=== PATIENT | female | born 1955 | race Caucasian/White ===

== ENCOUNTER 2016-05-04 11:00 | Outpatient (CLI) | payer MEDICARE, OTHER ==
--- OUTSIDE RECORDS SUMMARY | 2016-04-28 05:37 | XMS REPORT | Continuity of Care Document ---
Author Author [facility] Organization [facility] Address Unknown Phone Unavailable Care Team Providers Care [employer] Marker Name Role Phone CadenAlbertina barrios PCP [phone] Source Comments Some departments are not documenting in the electronic medical record. If you do not see the information that you expected, contact Release of Information in the Health Information Management department at [phone] for further assistance in locating additional records.[facility] Active Allergies and Adverse Reactions Not on File Current Medications Not on file Active Problems Not on file Social History Tobacco Use Types Packs/Day Years Used Date Never Assessed Plan of Care Health Maintenance Due Date Last Done Comments Physical (Comprehensive) 09/13/1963 Exam Pertussis Vaccine 09/13/1967 Tetanus Vaccine 1973 Cervical Cancer Screening 1977 Breast Cancer Screening 1996 Colorectal Cancer 2006 Screening Influenza Vaccine 11/14/2015 Results from Last 3 Months Not on file
[~2016-05-04] VITALS: Ht 172.7 cm; Wt 86.2 kg
[~2016-05-04 11:00] MED LIST: ALBU8.5H4 IH; ALPR1T PO; ATOR20TA66 PO; CALCIUM; CEPH500T PO; CHOL2000 PO; CHOL500049 PO; CITA20TA7 PO; DCS100C PO; ESTR1TAB14 PO; FNT100TD TD; GABA400C PO; HYDR-2889 PO; HYDR-2890 PO; HYDR-3816 PO; HYDR-3820 PO; LEVO500T69 PO; MELO15TA39 PO; METF500T8; METH4TAB PO; METH4TAB10; METH500T7 PO; MORP30CA16 PO; NF-PREM2.5; OXYC-272 PO; OXYC10TA7; PRD20T PO; PRED20TA PO; SENN1TAB76 PO; TIZA4CAP8 PO; TRM50T PO; VENL150C PO; ZOLP10TA5 PO
--- OUTSIDE RECORDS SUMMARY | 2016-05-04 11:24 | XMS REPORT | Continuity of Care Document ---
Author Author [facility] Organization [facility] Address Unknown Phone Unavailable Care Team Providers Care Pilot Boat Deckhand Name Role Phone CadenAlbertina barrios PCP [phone] Source Comments Some departments are not documenting in the electronic medical record. If you do not see the information that you expected, contact Release of Information in the Health Information Management department at [phone] for further assistance in locating additional records.[facility] Active Allergies and Adverse Reactions Not on [...]
[2016-05-05] MEDS ORDERED: HYDR-756 PO (11:46)
== END 2016-05-04 11:42 ==
LOC: PREOP 11:00
PROVIDERS: ATTEND Orthopaedic Surgery
DX: Z01.818 Encounter for other preprocedural examination (principal); M65.312 Trigger thumb, left thumb; Z22.322 Carrier or suspected carrier of Methicillin resistant Staphylococcus aureus

== ENCOUNTER 2016-05-05 08:32 | Day surgery (SDC) | payer MEDICARE, OTHER ==
[~2016-05-05] VITALS: Ht 172.7 cm; Wt 86.2 kg
[2016-05-05] MEDS: LACTATED RINGERS 1,000 ML IV PRN ×2 (08:45→10:30)
[2016-05-05] MEDS ORDERED: fentaNYL INJECTION 100 MCG/2 ML AMP ONE (08:48)
[2016-05-05] MEDS ORDERED: proPOfol 200 MG/20 ML (DIPRIVAN) VIAL IV ONE (08:48)
[2016-05-05] MEDS ORDERED: ceFAZolin 2 GM/50 ML NS 50 ML IV ONE (08:52)
[2016-05-05 09:04] VITALS: BP 138/94
[2016-05-05] MEDS ORDERED: ceFAZolin 2 GM/NS 50 ML IV ONE (09:15)
[2016-05-05] MEDS ORDERED: MIDAZOLAM 2 MG/2 ML (VERSED) VIAL IV ONE (09:15)
[2016-05-05] MEDS ORDERED: CATHETER FLUSH 10 ML SYR IV PRN (09:15)
[2016-05-05] MEDS ORDERED: LIDOCAINE 1% INJ 20 ML (XYLOCAINE) VIAL ONE (10:10)
[2016-05-05] MEDS ORDERED: NEO/POLY/BAC (NEOSPORIN) OINT 15 GM TUBE ONE (10:10)
[2016-05-05] MEDS ORDERED: GENTAMICIN 40 MG/ML 2 ML INJ SDV ONE (10:11)
--- NOTE | 2016-05-05 10:11 | Discharge Inst-Surgical ---
Discharge Inst-Surgical Depart Medication/Instructions New, Converted or Re-Newed RX: RX on Chart Patient Instructions f/u 7-10 days may remove dressing tomorrow and cover with bandaid frequent ROM of thumb no lifting over 2 lbs. Consults/Follow Up Goal/Follow Up Appt.: 7-10 days Activity Activity as Tolerated: No Activity Instructions: Avoid Pulling & Pushing, Avoid Stress to Incision Diet Discharge Diet: No Restrictions Diet After 24 Hours: Clear Liquid if Nauseous, Resume Home Diet If Any Problems/Questions/Issu: Contact Your Physician Skin/Wound Care Bathing Instructions: Shower Operative Area Clean and Dry: You May Remove Bandage Stitches/[place]/Dermabond Dis: Care of Stitches AMY WOOD APRN May 05, 2016 10:11 am
[2016-05-05] MEDS ORDERED: ONDANSETRON 4 MG/2 ML (SDV) Z0FRAN ONE (10:26)
[2016-05-05] MEDS ORDERED: LACTATED RINGERS 2,000 ML IV ONE (10:26)
[2016-05-05] MEDS ORDERED: SEVOFLURANE (ULTANE) 15 ML INHAL SOLN ONE (10:26)
[2016-05-05] MEDS ORDERED: KETOROLAC 30 MG/ML VIAL ONE (10:26)
[2016-05-05 11:15] VITALS: BP 114/91
[2016-05-05 11:45] VITALS: BP 116/88
[2016-05-05] MEDS ORDERED: HYDR-756 PO (11:46)
[2016-05-05 12:05] VITALS: BP 116/88
--- OUTSIDE RECORDS SUMMARY | 2016-05-05 13:15 | XMS REPORT | Continuity of Care Document ---
Author Author [facility] Organization [facility] Address Unknown Phone Unavailable Care Team Providers Care Wood Grinder Name Role Phone CadenAlbertina barrios PCP [phone] Source Comments Some departments are not documenting in the electronic medical record. If you do not see the information that you expected, contact Release of Information in the Health Information Management department at [phone] for further assistance in locating additional records.[facility] Active Allergies and Adverse Reactions Not [...]
--- OUTSIDE RECORDS SUMMARY | 2016-05-05 13:15 | XMS REPORT | Continuity of Care Document ---
Author Author [facility] Organization [facility] Address Unknown Phone Unavailable Care Team Providers Care [employer] Principal Name Role Phone CadenAlbertina barrios PCP [phone] Source Comments Some departments are not documenting in the electronic medical record. If you do not see the information that you expected, contact Release of Information in the Health Information Management department at [phone] for further assistance in locating additional records.[facility] Active Allergies and Adverse Reactions [...]
--- NOTE | 2016-05-06 11:28 | OPERATIVE REPORT ---
PROCEDURE PHYSICIAN: DANIEL HERNANDEZ DATE OF PROCEDURE: 05/05/2016 PREOPERATIVE DIAGNOSIS: Stenosing tenosynovitis left thumb (trigger thumb left hand). POSTOPERATIVE DIAGNOSIS: Stenosing tenosynovitis left thumb (trigger thumb left hand). PROCEDURE: A1 Annamaria release left thumb. SURGEON: Krishan FRIASMANAGER ENT: ANTOINETTE Belle ANESTHESIA: General. INDICATIONS: The patient is a 60-year-old female seen with chief complaint of progressive pain, in a catching locking sensation at the base of the left thumb with an inability to fully flex the left thumb. The patient was taken to surgery where an A1 annamaria release was performed without complication. PROCEDURE IN DETAIL: The patient was taken the operating room, placed supine upon the operating table and general inhalation anesthetic was administered. A well-padded pneumatic tourniquet was placed about the upper aspect of the left arm. A ChloraPrep and sterile drape of the left upper extremity was performed. The left arm was elevated, exsanguinated, and the tourniquet was inflated to 250 mmHg pressure. A transverse incision was made over the volar aspect of the MP joint of left thumb. Under loop magnification visualization, the incision was deepened. The flexor tendon was identified. The A1 annamaria was identified. This was divided longitudinally under direct visualization. The thumb was flexed and extended with no further tethering of the flexor tendon noted. Wound was irrigated with normal saline solution. The tourniquet was released. The skin edges were infiltrated with 1% lidocaine without epinephrine. The skin edges were then reapproximated simply with 4-0 nylon suture. An Adaptic Neosporin bulky dressing was placed about the left hand, wrist and thumb. The patient was awakened and was transported postop recovery with anesthesia personnel present in satisfactory condition. Job ID: [id number] Dictated Date: 05/05/2016 23:42:03 Roping Tender Date: 05/06/2016 11:22:49 / dejan
== END 2016-05-05 12:05 | disposition home or self-care (01) ==
LOC: SDC 08:32
PROVIDERS: ATTEND Orthopaedic Surgery
DX: M65.312 Trigger thumb, left thumb (principal)
CPT/HCPCS: 87081

== ENCOUNTER → 2016-08-25 | Outpatient (CLI) | payer MEDICARE, OTHER ==
[~2016-08-25] MED LIST changes: +HYDR-756 PO
--- NOTE | 2016-08-27 17:38 | Diagnostic Imaging Report ---
Bilateral screening mammogram The current study was also evaluated with a Computer Aided Detection (CAD) system. Indication: Screening. No current complaints stated on the questionnaire. COMPARISON: 08/02/15 Findings: The breasts are composed of scattered fibroglandular densities. Occasional benign-appearing desiccation is are noted. Allowing for technique and positional differences, no suspicious change is seen. IMPRESSION: No significant change. ACR BI-RADS Category 2: Benign findings. Result letter will be mailed to the patient. Note: At least 10% of breast cancer is not imaged by mammography. Dictated by: Dictated on workstation # [id number]
== END ==
LOC: RAD 13:02
PROVIDERS: ATTEND Internal Medicine
DX: Z12.31 Encounter for screening mammogram for malignant neoplasm of breast (principal)
CPT/HCPCS: 77067

== ENCOUNTER 2016-08-29 18:29 | Emergency (ER) | payer MEDICARE, OTHER ==
[~2016-08-29] VITALS: Ht 172.7 cm; Wt 90.7 kg
--- NOTE | 2016-08-29 19:00 | ED General ---
General Chief Complaint: Lower Extremity Stated Complaint: POST OP R FOOT REDNESS/OPEN WOUND Nursing Triage Note: Pt. noticed increased redness and drainage from post op wound of right 2nd great toe. She had a fusion of the affected toe by . Nursing Sepsis Screen: No Definite Risk Source of Information: Patient Exam Limitations: No Limitations History of Present Illness Time Seen by Provider: 18:59 Allergies and Home Medications Allergies Coded Allergies: No Known Drug Allergies (Unverified , 05/04/16) Home Medications Alprazolam 1 Mg Tablet, 1 TAB PO PRN, (Reported) Atorvastatin 20 Mg Tablet, 10 MG PO DAILY, (Reported) Cholecalciferol (Vitamin D3) 50,000 Unit Capsule, 50,000 UNIT PO WEEKLY, ( Reported) Citalopram Hydrobromide 20 Mg Tablet, 20 MG PO DAILY, (Reported) Gabapentin 400 Mg Capsule, 800 MG PO TID for 30 Days, (Reported) Hydrocodone/Acetaminophen 1 Each Tablet, 1 EACH PO Q8H PRN for PAIN, (Reported) Hydrocodone/Acetaminophen 1 Each Tablet, 1 EACH PO EVERY 4-6HRS PRN for PAIN, # 40 Prescribed by: BROOKLYN BYRD on 05/05/16 1146 Meloxicam 15 Mg Tablet, 15 MG PO DAILY, (Reported) Tizanidine HCl 4 Mg Capsule, 4 MG PO TID PRN for MUSCLE CRAMPS, (Reported) Zolpidem Tartrate 10 Mg Tablet, 10 MG PO HS, (Reported) Past Fplzcow-Epiuwl-Ccryjd Hx Patient Social History Alcohol Use: Denies Use Recreational Drug Use: No Smoking Status: Current Everyday Smoker Type Used: Cigarettes Recent Foreign Travel: No Contact w/Someone Who Travel: No Recent Infectious Disease Expo: No Recent Hopitalizations: No Immunizations Up To Date Date of Pneumonia Vaccine: Dec 13, 2012 Date of Influenza Vaccine: Dec 13, 2013 Seasonal Allergies Seasonal Allergies: No Surgeries HX Surgeries: Yes (back, neck, lithotrypsy, KNEE SURGERY, R TKR, D&C) Surgeries: Appendectomy, Orthopedic, Tonsillectomy Respiratory Hx Respiratory Disorders: No Cardiovascular Hx Cardiac Disorders: Yes Cardiac Disorders: High Cholesterol Neurological Hx Neurological Disorders: No Reproductive System Hx Reproductive Disorders: No Sexually Transmitted Disease: No HIV/AIDS: No LABORER TIN CAN History: Menopausal Genitourinary Hx Genitourinary Disorders: Yes Genitourinary Disorders: Kidney Stones Gastrointestinal Hx Gastrointestinal Disorders: Yes Gastrointestinal Disorders: Gastroesophageal Reflux Musculoskeletal Hx Musculoskeletal Disorders: Yes (CHRONIC GENERALIZED PAIN, AND LEFT BACK SPASMS) Musculoskeletal Disorders: Degenerate Disk Disease, Arthritis, Chronic Back Pain Endocrine Hx Endocrine Disorders: No HEENT HX ENT Disorders: Yes (DENTURES, LASIK EYE SURGERY) Cancer Hx Cancer: Yes Cancer: Skin, Melanoma Psychosocial Hx Psychiatric Problems: Yes Behavioral Health Disorders: Sleep Difficulties, Anxiety, Depression Integumentary HX Skin/Integumentary Disorder: No Blood Transfusions Hx Blood Disorders: No Adverse Reaction to a Blood Tr: No (HAS HAD BLOOD WITH NO REACTION) Family Medical History Significant Family History: No Pertinent Family Hx Physical Exam Vital Signs Vital Sign - Last 12Hours 08/29/16 18:47 Temp 97.5 Pulse 70 B/P (MAP) 138/58 Pulse Ox 98 O2 Delivery Room Air Capillary Refill : Less Than 3 Seconds Progress/Results/Core Measures Results/Orders My Orders Orders - EMILIANA SYLVESTER Rx-Trimeth/Sulfameth Ds Tab (Rx-Bactrim/ (08/29/16 19:06) Vital Signs/I&O Vital Sign - Last 12Hours 08/29/16 18:47 Temp 97.5 Pulse 70 B/P (MAP) 138/58 Pulse Ox 98 O2 Delivery Room Air Blood Pressure Mean: 84 Departure Impression Impression: Primary Impression: Cellulitis of toe of right foot Disposition: 01 HOME, SELF-CARE Condition: Improved Departure-Patient Inst. Decision time for Depature: 19:07 Referrals: DENYS PANTOJA DPM, WILLIAM J DO (PCP/Family) Primary Care Physician Patient Instructions: Cellulitis (Skin Infection), Adult (DC) Add. Discharge Instructions: All discharge instructions reviewed with patient and/or family. Voiced understanding. Medications as directed. Continue usual home meds. Follow-up with Dr. Pantoja for recheck as an outpatient as previously scheduled. Return to the emergency department for worsened pain, redness, drainage, fever, or any other concerns. Scripts Sulfamethoxazole/Trimethoprim (Bactrim Ds Tablet) 1 Each Tablet 1 EACH PO BID, #14 TAB 0 Refills Prov: EMILIANA SYLVESTER 08/29/16 EMILIANA SYLVESTER Aug 29, 2016 19:00
[2016-08-29] MEDS ORDERED: RX-TRIMETH/SULFA. 160-800 MG (BACTRIM DS) TAB PPK#2 PO STA (19:06)
[2016-08-29] MEDS ORDERED: SULF1TAB35 PO (19:09)
[2016-08-29 19:17] VITALS: BP 138/58
== END 2016-08-29 19:17 | disposition home or self-care (01) ==
LOC: EDUNIT# 18:29 → ER 18:31
DX: T81.4XXA Infection following a procedure, initial encounter (principal)
CPT/HCPCS: 99283

== ENCOUNTER → 2017-04-23 | Outpatient (CLI) | payer MEDICARE, OTHER ==
[~2017-04-23] MED LIST changes: +HYDR-34 PO; -HYDR-3816 PO; +SULF1TAB35 PO
--- NOTE | 2017-04-23 14:34 | Diagnostic Imaging Report ---
PROCEDURE: MRI lumbar spine. TECHNIQUE: Multiplanar, multisequence MRI of the lumbar spine was performed without contrast. INDICATION: Low back pain radiating into right lower extremity with weakness. History of lumbar spine surgery. COMPARISON: MRI lumbar spine without contrast 08/02/2015. FINDINGS: There are 5 lumbar-type vertebral bodies presumed for the purposes of this report. Normal alignment. Vertebral body heights are preserved. Normal bone marrow signal. There are postoperative findings of bilateral cristi and pedicle screw fixation at L4-L5. No abnormal signal in the conus which terminates at L1. Normal morphology of the cauda equina. The visualized paravertebral soft tissues are unremarkable. L1-L2: Ligamentous hypertrophy results in no substantial spinal canal or lateral recess narrowing. No neuroforaminal narrowing. L2-L3: Annular disc bulge, ligamentous hypertrophy and facet arthropathy all result in moderate spinal canal and bilateral lateral recess narrowing. Disc space height loss also results in advanced bilateral neuroforaminal narrowing. This is similar to the prior exam. L3-L4: Annular disc bulge, ligamentous hypertrophy and facet arthropathy result in mild spinal canal narrowing and moderate left lateral recess narrowing. Disc space height loss also contributes to advanced left and moderate right neuroforaminal narrowing. L4-L5: Annular disc bulge and facet arthropathy result in mild spinal canal and bilateral lateral recess narrowing. There is advanced left and moderate right neuroforaminal narrowing. L5-S1: Advanced facet arthropathy. This contributes to advanced right and mild left neuroforaminal narrowing. No spinal canal or lateral recess narrowing. IMPRESSION: 1. Stable postoperative findings of bilateral cristi and pedicle screw fixation at L4-L5. 2. Multilevel spinal canal and lateral recess narrowing is greatest at L2-L3 where it is moderate to advanced, similar to the prior exam. 3. Diffuse moderate and advanced neuroforaminal narrowing detailed above. Dictated by: Dictated on workstation # [id number]
== END ==
LOC: RAD 13:01
PROVIDERS: ATTEND Internal Medicine
DX: M48.07 Spinal stenosis, lumbosacral region (principal); M51.26 Other intervertebral disc displacement, lumbar region; M46.06 Spinal enthesopathy, lumbar region; M46.87 Other specified inflammatory spondylopathies, lumbosacral region; Z98.1 Arthrodesis status
CPT/HCPCS: 72148

== ENCOUNTER → 2017-12-16 | Outpatient (CLI) | payer MEDICARE, OTHER ==
[~2017-12-16] MED LIST changes: -CITA20TA7 PO; +CITA20TA9 PO; +HYDR-4227 PO; -HYDR-756 PO
--- NOTE | 2017-12-16 12:11 | Diagnostic Imaging Report ---
PROCEDURE: MRI lumbar spine. TECHNIQUE: Multiplanar, multisequence MRI of the lumbar spine was performed without contrast. INDICATION: Back pain, previous surgeries. COMPARISON: Exam compared to 04/23/2017. FINDINGS: Posterior fusion with bi-pedicular screws at the L4-L5 level are redemonstrated finding. No paravertebral fluid collection. The lumbar statures are normal. The marrow signal intensity was normal. The conus is normal. No intrathecal abnormality. No paravertebral mass, hemorrhage, or fluid collection demonstrated. T12-L1: This level and disc is stable and normal. L1-L2: There is disc desiccation and mild anterior greater than posterior endplate osteophytes. Canal, neuroforamina, and recesses appeared patent. L2-L3: There is disc desiccation, loss of disc stature with circumferential annular bulge. There is thickening of the ligamenta flava and facet arthrosis. The constellation of findings result in a moderate degree of canal stenosis with bi-foraminal narrowing, greater left than right, of moderate severity. L3-L4: There is mild canal stenosis, stable. Disc bulge and endplate osteophytes, asymmetric to the left, result in [id number] left foraminal narrowing. L4-L5: Canal is patent. Disc material, asymmetric to the left, results in [id number] degree of left foraminal narrowing. The right neuroforamen is mildly narrowed. Findings are unchanged. L5-S1: No substantial canal stenosis. Disc material does appear to result in an at least moderate stenosis of the right neuroforamen, partially obscured by artifact from pedicular screw. IMPRESSION: [id number]-[id number] multilevel stable canal stenoses. Multilevel foraminal narrowings, not substantially changed. No acute bony pathology, fluid collection, or malalignment. Dictated by: Dictated on workstation # [id number]
--- NOTE | 2017-12-16 12:22 | Diagnostic Imaging Report ---
Clinical indication: Patient with history of multiple back surgeries. Patient has chronic back pain. Exam: X-ray of the lumbar spine, multiple views including lateral flexion-extension views. Comparison: X-ray lumbar spine dated 08/23/2014. Findings: There is stable appearance of the L4-L5 posterior fusion hardware with bilateral spanning rods and pedicle screws. There are no hardware complications, such as osteolysis or hardware fracture. Lumbar spine has normal alignment with no acute fracture or dislocation. No significant motion on flexion-extension views. There is stable mild to moderate loss of intervertebral disc height at the L1-L2 and L2-L3 levels. There is slight progression of vertebral body spurs at the L3-L4. Sacroiliac joints show mild sclerosis. There is a 4 mm calcification overlying the inferior right renal shadow region which is not seen on the prior study. Renal stone may be considered. Impression: 1: Stable L4-L5 posterior fusion hardware with no interval hardware complications. 2: There is slight progression of lumbar spine degenerative spurs, but otherwise stable appearance of the lumbar spine. 3: There is interval development of a calcification overlying the right renal shadow and may represent renal stone. Dictated by: Dictated on workstation # [id number]
== END ==
LOC: RAD 10:10
DX: M48.061 Spinal stenosis, lumbar region without neurogenic claudication (principal); M99.73 Connective tissue and disc stenosis of intervertebral foramina of lumbar region; Z98.1 Arthrodesis status
CPT/HCPCS: 72114; 72148

== ENCOUNTER → 2017-12-27 | Outpatient (CLI) | payer MEDICARE, OTHER ==
--- NOTE | 2017-12-27 14:49 | Diagnostic Imaging Report ---
Indication: Routine screening. Comparison is made with prior mammograms from 08/25/2016 and 08/02/2015. 2-D and 3-D bilateral screening mammography was performed with CAD. Scattered fibroglandular densities are identified bilaterally. No mass or malignant- appearing microcalcifications are seen. Axillae are unremarkable. Impression: BI-RADS category 1 No mammographic features suspicious for malignancy are identified. ACR BI-RADS Category 1: Negative. Result letter will be mailed to the patient. Note: At least 10% of breast cancer is not imaged by mammography. Dictated by: Dictated on workstation # [id number]
== END ==
LOC: RAD 11:11
PROVIDERS: ATTEND Internal Medicine
DX: Z12.31 Encounter for screening mammogram for malignant neoplasm of breast (principal)
CPT/HCPCS: 77067

== ENCOUNTER 2018-02-01 14:16 | Outpatient (RCR) | payer MEDICARE, OTHER | END 2018-02-01 15:18 | disposition home or self-care (01) | PROVIDERS: ATTEND Internal Medicine | DX: S46.011A Strain of muscle(s) and tendon(s) of the rotator cuff of right shoulder, initial encounter (principal) ==

== ENCOUNTER → 2018-03-07 | Outpatient (CLI) | payer MEDICARE, OTHER ==
--- NOTE | 2018-03-07 10:46 | Diagnostic Imaging Report ---
PROCEDURE: CT sinuses without contrast TECHNIQUE: Multiple contiguous axial images were obtained through the sinuses without the use of intravenous contrast. Coronal and sagittal reformations were then performed. INDICATION: Headaches, nausea, congestion at night. CORRELATION STUDY: None. FINDINGS: There is a very mild mucosal thickening with a slightly frothy appearance about the sphenoid sinus. No significant air-fluid levels. Trace areas of mucosal thickening about the right and to a lesser degree left maxillary sinus. Probable small sessile cyst or polyp along the roof of the right maxillary sinus. No air-fluid levels. The frontal sinuses are fairly small and hypoplastic but otherwise clear. Ethmoid air cells with trace areas of mucosal thickening. The nasal septum without significant deviation. The ostiomeatal complexes demonstrate minimal mucosal thickening near their origins. The mastoid air cells, external auditory canals and middle ear cavities are clear. The patient is noted be edentulous. IMPRESSION: Very mild areas of mucosal thickening suggested most pronounced along the left sphenoid sinus. Dictated by: Dictated on workstation # [id number]
== END ==
LOC: RAD 09:42
PROVIDERS: ATTEND Otolaryngology Otolaryngology/Facial Plastic Surgery
DX: J32.9 Chronic sinusitis, unspecified (principal)
CPT/HCPCS: 70486

== ENCOUNTER 2018-11-25 13:45 | Outpatient (RCR) | payer MEDICARE, OTHER | END 2019-02-02 13:33 | disposition home or self-care (01) | PROVIDERS: ATTEND Neurological Surgery | DX: M50.022 Cervical disc disorder at C5-C6 level with myelopathy (principal) ==

== ENCOUNTER → 2019-04-14 | Outpatient (CLI) | payer MEDICARE, OTHER ==
[~2019-04-14] MED LIST changes: +METF500T19; -METF500T8
--- NOTE | 2019-04-14 14:48 | Diagnostic Imaging Report ---
PROCEDURE: CT abdomen and pelvis without contrast. TECHNIQUE: Multiple contiguous axial images were obtained through the abdomen and pelvis without the use of intravenous contrast. Auto Exposure Controls were utilized during the CT exam to meet ALARA standards for radiation dose reduction. All CT scans use one or more of the following dose optimizing techniques: automated exposure control, MA and/or KvP adjustment based on patient size and exam type or iterative reconstruction. INDICATION: Right lower quadrant abdominal pain. Diarrhea. COMPARISON: None. FINDINGS: Included portions of the lung bases are clear. CT abdomen: Normal appendix cannot be adequately identified, but there is no pericecal inflammation. Small bowel loops are nondistended. Multiple nonobstructive renal calculi are seen within the inferior pole of the right kidney. No renal calculi are seen on the left. No ureteral calculi identified on either side. Additionally, there is no hydronephrosis or other evidence of obstruction. No focal masses are identified on this noncontrast exam. There is probable hypodense cyst within the superior pole of the right kidney. Right adrenal nodule measures 1.6 x 1.4 cm. Hounsfield units of 6 are consistent with benign adenoma. The left adrenal gland, spleen, pancreas, and liver have an unremarkable noncontrast CT appearance. There is no loculated fluid collection, free fluid, nor free air within the abdomen. No abnormal mesenteric or retroperitoneal adenopathy is seen. Osseous structures show no acute abnormalities. There is mild scattered calcified aortic and arterial atherosclerosis. Osseous structures show no acute abnormalities. CT pelvis: Urinary bladder is unopacified. No calculi are seen within the urinary bladder. There is no loculated fluid collection, free fluid, nor free air within the pelvis. No abnormal lymph nodes are identified. Osseous structures show no acute abnormalities. Note is made of intramuscular lipoma of the left gluteus brittany muscle. IMPRESSION: 1. Nonobstructive right renal calculi. 2. No ureteral calculi, hydronephrosis, nor other evidence of obstruction. 3. Benign right adrenal adenoma. Dictated by: Dictated on workstation # [id number]
== END ==
LOC: RAD 13:49
PROVIDERS: ATTEND Internal Medicine
DX: N20.0 Calculus of kidney (principal); D35.01 Benign neoplasm of right adrenal gland; K50.90 Crohn's disease, unspecified, without complications
CPT/HCPCS: 74176

== ENCOUNTER → 2019-04-20 | Outpatient (CLI) | payer MEDICARE, OTHER ==
--- NOTE | 2019-04-21 09:06 | Diagnostic Imaging Report ---
INDICATION: Routine screening. COMPARISON: 12/27/2017 and 08/25/2016. TECHNIQUE: 2D and 3D bilateral screening mammography was performed with CAD. FINDINGS: Scattered fibroglandular densities are identified bilaterally. The parenchymal pattern is stable. No mass or malignant appearing microcalcifications are seen. The axillae are unremarkable. IMPRESSION: No mammographic features suspicious for malignancy are identified. ACR BI-RADS Category 1: Negative. Result letter will be mailed to the patient. Note: At least 10% of breast cancer is not imaged by mammography. Dictated by: Dictated on workstation # [id number]
== END ==
LOC: RAD 14:34
PROVIDERS: ATTEND Internal Medicine
DX: Z12.31 Encounter for screening mammogram for malignant neoplasm of breast (principal)
CPT/HCPCS: 77067

== ENCOUNTER 2019-12-26 10:25 | Emergency (ER) | payer MEDICARE, OTHER ==
[~2019-12-26] VITALS: Ht 170 cm; Wt 83.0 kg
[~2019-12-26 10:25] MED LIST changes: +ACHYD1T PO; -HYDR-3820 PO; +METF-865; -METF500T19
--- NOTE | 2019-12-26 10:44 | ED General ---
General Stated Complaint: SVT Source of Information: Patient, EMS Exam Limitations: No Limitations History of Present Illness Date Seen by Provider: Dec 26, 2019 Time Seen by Provider: 10:40 Initial Comments To ER by EMS from [facility] urgent care where she presented with cough and shortness of breath. She's been having this cough productive in nature and discomfort in the right upper chest for about 3 weeks. She believed she had pneumonia. She is a smoker. She had a COVID swab done which negative there. She felt very lightheaded and short of breath, was found to have a narrow complex heart rate of 170s. EMS was summoned and upon their arrival her heart rate was down to 80s. Patient states that over the years she's had a couple of these episodes of high heart rate, near syncope and shortness of breath but they terminate spontaneously and she has never sought care for them. She has had no fevers or chills at any point. Timing/Duration: Other (productive cough 3 weeks) Severity: Moderate Associated Systoms: Cough Allergies and Home Medications Allergies Coded Allergies: No Known Drug Allergies (Unverified , 05/04/16) Home Medications Alprazolam 1 Mg Tablet, 1 TAB PO PRN, (Reported) Atorvastatin 20 Mg Tablet, 10 MG PO DAILY, (Reported) Cefuroxime Axetil 500 Mg Tablet, 500 MG PO BID Prescribed by: HECTOR DARLING on 12/26/191127 Cholecalciferol (Vitamin D3) 50,000 Unit Capsule, 50,000 UNIT PO WEEKLY, (Reported) Citalopram Hydrobromide 20 Mg Tablet, 20 MG PO DAILY, (Reported) Fluconazole 150 Mg Tablet, 150 MG PO ONCE PRN for yeast infection Prescribed by: HECTOR DARLING on 12/26/19 1128 Gabapentin 400 Mg Capsule, 800 MG PO TID, (Reported) Hydrocodone Bit/Acetaminophen 1 Each Tablet, 1 EACH PO Q8H PRN for PAIN, (Reported) Hydrocodone/Acetaminophen 1 Each Tablet, 1 EACH PO EVERY 4-6HRS PRN for PAIN Prescribed by: BROOKLYN BYRD on 05/05/16 1146 Meloxicam 15 Mg Tablet, 15 MG PO DAILY, (Reported) Prednisone 20 Mg Tab, 40 MG PO DAILY Prescribed by: HECTOR DARLING on 12/26/19 1128 Sulfamethoxazole/Trimethoprim 1 Each Tablet, 1 EACH PO BID Prescribed by: EMILIANA SYLVESTER on 08/29/161908 Tizanidine HCl 4 Mg Capsule, 4 MG PO TID PRN for MUSCLE CRAMPS, (Reported) Zolpidem Tartrate 10 Mg Tablet, 10 MG PO HS, (Reported) Patient Home Medication List Home Medication List Reviewed: Yes Review of Systems Review of Systems Constitutional: see HPI; No chills, No fever EENTM: see HPI Respiratory: see HPI, cough Cardiovascular: no symptoms reported Genitourinary: no symptoms reported Musculoskeletal: no symptoms reported Skin: no symptoms reported Psychiatric/Neurological: No Symptoms Reported Hematologic/Lymphatic: No Symptoms Reported Past [id number] Hx Patient Social History Type Used: Cigarettes Recent Hopitalizations: No Immunizations Up To Date Date of Pneumonia Vaccine: Dec 13, 2012 Date of Influenza Vaccine: Dec 13, 2013 Seasonal Allergies Seasonal Allergies: No Past Medical History Surgeries: Yes (back, neck, lithotrypsy, KNEE SURGERY, R TKR, D&C) Appendectomy, Orthopedic, Tonsillectomy Respiratory: No Cardiac: Yes High Cholesterol Neurological: No Reproductive Disorders: No MEDICAL RECORD RETRIEVAL SPECIALIST History: Menopausal Sexually Transmitted Disease: No HIV/AIDS: No Kidney Stones Gastrointestinal: Yes Gastroesophageal Reflux Musculoskeletal: Yes (CHRONIC GENERALIZED PAIN, AND LEFT BACK SPASMS) Degenerate Disk Disease, Arthritis, Chronic Back Pain Endocrine: No Cancer: Yes Skin, Melanoma Psychosocial: Yes Sleep Difficulties, Anxiety, Depression Integumentary: No Blood Disorders: No Adverse Reaction/Blood Tranf: No (HAS HAD BLOOD WITH NO REACTION) Family Medical History No Pertinent Family Hx Physical Exam Vital Signs Capillary Refill : Height, Weight, BMI Height: 5'8.00" Weight: 200lbs. 0.0oz. [id number]; 28.9 BMI Method:Stated General Appearance: No Apparent Distress, WD/WN Eyes: Bilateral Eye Normal Inspection, Bilateral Eye PERRL, Bilateral Eye EOMI Neck: Full Range of Motion, Normal Inspection Respiratory: Lungs Clear, Normal Breath Sounds, No Accessory Muscle Use, No Respiratory Distress Cardiovascular: Regular Rate, Rhythm, Normal Peripheral Pulses, Other (normal sinus 85) Gastrointestinal: Normal Bowel Sounds, Non Tender, Soft Extremity: Normal Capillary Refill, Normal Inspection Neurologic/Psychiatric: Alert, Oriented x3 Skin: Normal Color, Warm/Dry Progress/Results/Core Measures Suspected Sepsis SIRS Temperature: Pulse: Respiratory Rate: Laboratory Tests 12/26/19 10:35: White Blood Count 6.9 Blood Pressure / Mean: Laboratory Tests 12/26/19 10:35: Creatinine 0.83, Platelet Count 253, Total Bilirubin 0.4 Results/Orders Lab Results Laboratory Tests Test 12/26/19 10:35 Range/Units White Blood Count 6.9 4.3-11.0 10^3/uL Red Blood Count 4.83 3.80-5.11 10^6/uL Hemoglobin 14.3 11.5-16.0 g/dL Hematocrit 44 35-52 % Mean Corpuscular Volume 91 80-99 fL Mean Corpuscular Hemoglobin 30 25-34 pg Mean Corpuscular Hemoglobin Concent 32 32-36 g/dL Red Cell Distribution Width 12.3 10.0-14.5 % Platelet Count 253 130-400 10^3/uL Mean Platelet Volume 9.4 9.0-12.2 fL Immature Granulocyte % (Auto) 0 % Neutrophils (%) (Auto) 64 42-75 % Lymphocytes (%) (Auto) 27 12-44 % Monocytes (%) (Auto) 6 0-12 % Eosinophils (%) (Auto) 2 0-10 % Basophils (%) (Auto) 0 0-10 % Neutrophils # (Auto) 4.4 1.8-7.8 10^3/uL Lymphocytes # (Auto) 1.9 1.0-4.0 10^3/uL Monocytes # (Auto) 0.4 0.0-1.0 10^3/uL Eosinophils # (Auto) 0.2 0.0-0.3 10^3/uL Basophils # (Auto) 0.0 0.0-0.1 10^3/uL Immature Granulocyte # (Auto) 0.0 0.0-0.1 10^3/uL D-Dimer 0.68 H 0.00-0.49 UG/ML Sodium Level 142 135-145 MMOL/L Potassium Level 4.6 3.6-5.0 MMOL/L Chloride Level 109 H 98-107 MMOL/L Carbon Dioxide Level 24 21-32 MMOL/L Anion Gap 9 5-14 MMOL/L Blood Urea Nitrogen 9 7-18 MG/DL Creatinine 0.83 0.60-1.30 MG/DL Estimat Glomerular Filtration Rate > 60 BUN/Creatinine Ratio 11 Glucose Level 108 H 70-105 MG/DL Calcium Level 9.0 8.5-10.1 MG/DL Corrected Calcium 8.8 8.5-10.1 MG/DL Total Bilirubin 0.4 0.1-1.0 MG/DL Aspartate Amino Transf (AST/SGOT) 16 5-34 U/L Alanine Aminotransferase (ALT/SGPT) 10 0-55 U/L Alkaline Phosphatase 67 40-136 U/L Troponin I < 0.028 <0.028 NG/ML C-Reactive Protein High Sensitivity 0.43 0.00-0.50 MG/DL Total Protein 7.2 6.4-8.2 GM/DL Albumin 4.3 3.2-4.5 GM/DL My Orders Orders - HECTOR DARLING APRN Cbc With Automated Diff (12/26/19 10:37) Troponin I (12/26/19 10:37) Ekg Tracing (12/26/19 10:37) Comprehensive Metabolic Panel (12/26/19 10:37) Hs C Reactive Protein (12/26/19 10:37) Fibrin Degradation Products (12/26/19 10:37) Chest 1 View, Ap/Pa Only (12/26/19 10:37) Ed Iv/Invasive Line Start (12/26/19 10:37) Ct Angio Chest W (12/26/19 11:21) Iohexol Injection (Omnipaque 350 Mg/Ml 1 (12/26/19 11:30) Received Contrast (Hold Metformin- Contr (12/26/19 11:30) Sodium Chloride Flush (Catheter Flush Sy (12/26/19 11:30) Ns (Ivpb) (Sodium Chloride 0.9% Ivpb Bag (12/26/19 11:30) Vital Signs/I&O Capillary Refill : Departure Communication (Admissions) [id number] is clear. Does not want a CT scan of the chest, would prefer to go on home and have this arranged outpatient by primary care. I discussed with her the need for cardiology follow-up. We'll treat her for bronchitis. She states she would like to follow up with [facility]. Impression Primary Impression: Acute bronchitis Additional Impression: Pleuritic chest pain Disposition: 01 HOME, SELF-CARE Condition: Stable Departure-Patient Inst. Decision time for Depature: 11:26 Referrals: MILE SOLARES DO (PCP) Primary Care Physician ALTA TONEY MD FACP [facility] Patient Instructions: Acute Bronchitis Add. Discharge Instructions: 1. Medication as directed 2. Follow-up Dr. Solares 3. Return to ER for any worsening. Call a industrial psychology professor of your choosing. Given these few episodes of high heart rate and shortness of breath that you have had over the few years, this could be an unusual but not life-threatening rhythm called supraventricular tachycardia. Alternatively this could be a brief episode of atrial fibrillation. It does warrant follow-up with a heart doctor Scripts Fluconazole (Diflucan) 150 Mg Tablet 150 MG PO ONCE PRN for yeast infection, #1 TAB Prov: HECTOR DARLING APRN 12/26/19 Cefuroxime Axetil (Cefuroxime) 500 Mg Tablet 500 MG PO BID, #14 TAB Prov: HECTOR DARLING APRN 12/26/19 Prednisone (Prednisone) 20 Mg Tab 40 MG PO DAILY, #8 TAB 0 Refills Prov: HECTOR DARLING APRN 12/26/19 Copy Copies To 1: MILE SOLARES PETER J APRN Dec 26, 2019 10:44
[2019-12-26 10:49] LABS: BASOPHILS % (AUTO) 0 % (0-10); EOSINOPHILS # (AUTO) 0.2 10^3/uL (0.0-0.3); EOSINOPHILS % (AUTO) 2 % (0-10); HEMATOCRIT 44 % (35-52); HEMOGLOBIN 14.3 g/dL (11.5-16.0); LYMPHOCYTES # (AUTO) 1.9 10^3/uL (1.0-4.0); LYMPHOCYTES % (AUTO) 27 % (12-44); MEAN CORPUSCULAR HEMOGLOBIN 30 pg (25-34); MEAN CORPUSCULAR HGB CONC 32 g/dL (32-36); MEAN CORPUSCULAR VOLUME 91 fL (80-99); MEAN PLATELET VOLUME 9.4 fL (9.0-12.2); MONOCYTES # (AUTO) 0.4 10^3/uL (0.0-1.0); MONOCYTES % (AUTO) 6 % (0-12); NEUTROPHILS # (AUTO) 4.4 10^3/uL (1.8-7.8); NEUTROPHILS % (AUTO) 64 % (42-75); PLATELET COUNT 253 10^3/uL (130-400); WHITE BLOOD COUNT 6.9 10^3/uL (4.3-11.0)
[2019-12-26 11:00] LABS: ALBUMIN 4.3 GM/DL (3.2-4.5); CHLORIDE 109 MMOL/L (98-107); POTASSIUM 4.6 MMOL/L (3.6-5.0); SODIUM 142 MMOL/L (135-145)
[2019-12-26 11:02] LABS: GLUCOSE 108 MG/DL (70-105); TOTAL PROTEIN 7.2 GM/DL (6.4-8.2)
[2019-12-26 11:03] LABS: CARBON DIOXIDE 24 MMOL/L (21-32)
[2019-12-26 11:04] LABS: BILIRUBIN,TOTAL 0.4 MG/DL (0.1-1.0)
[2019-12-26 11:06] LABS: ALKALINE PHOSPHATASE 67 U/L (40-136); CREATININE SERUM 0.83 MG/DL (0.60-1.30); GFR ESTIMATED > 60
[2019-12-26 11:07] LABS: BUN/CREATININE RATIO 11
[2019-12-26 11:09] LABS: ALANINE AMINOTRANSFERASE 10 U/L (0-55)
[2019-12-26] MEDS ORDERED: CEFU500T63 PO (11:28)
[2019-12-26] MEDS ORDERED: FLUC150T PO (11:28)
[2019-12-26] MEDS ORDERED: PRD20T PO (11:28)
[2019-12-26] MEDS ORDERED: HOLD METFORMIN - RECEIVED CONTRAST 20 ML VIAL IV SCH (11:30)
[2019-12-26] MEDS ORDERED: CATHETER FLUSH 10 ML SYR IV PRN (11:30)
[2019-12-26] MEDS ORDERED: NS 100 ML (IVPB) BAG IV ONE (11:30)
[2019-12-26] MEDS ORDERED: IOHEXOL 350 MG/ML 100 ML (OMNIPAQUE 350) VIAL IV ONE (11:30)
--- NOTE | 2019-12-26 11:33 | Diagnostic Imaging Report ---
INDICATION: Cough and chest pain Frontal chest obtained at 1118 a.m. and compared to 07/05/2013. Heart and mediastinal silhouette are normal in appearance. Lungs are clear. There is no pneumothorax or pleural fluid. IMPRESSION: No acute process in the chest. Dictated by: Dictated on workstation # [id number]
[2019-12-26 12:35] VITALS: BP 144/93
== END 2019-12-26 12:35 | disposition home or self-care (01) ==
LOC: ER 10:25 → EDUNIT# 10:25 → ER 12:35
DX: J40 Bronchitis, not specified as acute or chronic (principal); R07.89 Other chest pain; F41.9 Anxiety disorder, unspecified; F32.9 Major depressive disorder, single episode, unspecified; E78.00 Pure hypercholesterolemia, unspecified; G89.29 Other chronic pain; M54.9 Dorsalgia, unspecified; Z20.828 Contact with and (suspected) exposure to other viral communicable diseases; Z85.828 Personal history of other malignant neoplasm of skin; Z85.820 Personal history of malignant melanoma of skin; Z79.52 Long term (current) use of systemic steroids; Z79.891 Long term (current) use of opiate analgesic
CPT/HCPCS: 36415; 71045; 80053; 84484; 85025; 85379; 86141; 93005

== ENCOUNTER → 2019-12-29 | Outpatient (CLI) | payer MEDICARE, OTHER ==
[~2019-12-29] MED LIST changes: +CEFU500T63 PO; +FLUC150T PO
== END ==
LOC: CARD 13:30
PROVIDERS: ATTEND Internal Medicine
DX: I47.1 Supraventricular tachycardia (principal); J20.9 Acute bronchitis, unspecified; I34.0 Nonrheumatic mitral (valve) insufficiency
CPT/HCPCS: 93306

== ENCOUNTER → 2020-01-05 | Outpatient (CLI) | payer MEDICARE, OTHER ==
[~2020-01-05] VITALS: Ht 170 cm; Wt 82.0 kg
[~2020-01-05] MED LIST changes: +CATHETER FLUSH 10 ML SYR IV PRN; +REGADENOSON 0.4 MG/5 ML SYR (LEXISCAN) IV ONE
[2020-01-05 08:15] VITALS: BP 123/92
[2020-01-05 08:19] VITALS: BP 141/92
[2020-01-05 08:23] VITALS: BP 127/77
--- NOTE | 2020-01-05 14:00 | Cardiology Stress Test Report ---
Stress Test Report Date of Procedure/Referring: Date of Procedure: Jan 05, 2020 PCP Timmy Solares DO Admitting Physician Timmy Solares DO Indications: PSVT Baseline Vital Signs Vital Signs Date Time Temp Pulse Resp B/P (MAP) Pulse Ox O2 Delivery O2 Flow Rate FiO2 01/05/20 08:15 60 123/92 (102) 96 Room Air Summary: Patient receive a resting and stress dose of Myoview, images were acquired and reviewed in the short axis view, horizontal long axis view and vertical long axis view. TID: 1.1 SSS: 3 SDS: 3 EF: 69 1. Typical female pattern with breast attenuation, mild decreased uptake at the basal to mid anterior wall with subtle reversibility, no significant ischemia or infarction on SPECT images 2. Normal left ventricular size, EF 69 percent RICARDO MARADIAGA MD Jan 05, 2020 14:00
== END ==
LOC: CARD 07:15
PROVIDERS: ATTEND Internal Medicine
DX: I47.1 Supraventricular tachycardia (principal); J20.9 Acute bronchitis, unspecified
CPT/HCPCS: 78452; 93017; A9502

== ENCOUNTER 2020-08-21 14:39 | Emergency (ER) | payer MEDICARE, OTHER ==
[~2020-08-21] VITALS: Ht 170 cm; Wt 88.6 kg
[~2020-08-21 14:39] MED LIST changes: -CATHETER FLUSH 10 ML SYR IV PRN; -REGADENOSON 0.4 MG/5 ML SYR (LEXISCAN) IV ONE
[2020-08-21] MEDS ORDERED: KETOROLAC 30 MG/ML VIAL IVP ONE (15:00)
[2020-08-21] MEDS ORDERED: ONDANSETRON 4 MG/2 ML (SDV) Z0FRAN IVP ONE (15:00)
[2020-08-21] MEDS ORDERED: fentaNYL INJ 100 MCG/2 ML AMP IVP ONE (15:00)
--- NOTE | 2020-08-21 15:02 | ED Back Pain ---
General Stated Complaint: BACK PAIN Source of Information: Patient Exam Limitations: No Limitations History of Present Illness Date Seen by Provider: Aug 21, 2020 Time Seen by Provider: 14:50 Initial Comments Patient is a 64-year-old female who presents to the emergency department today with a chief complaint of left flank pain and left lower thoracic back pain. Patient states that she woke up this morning with the pain. She was able to function most of the morning but the pain has steadily increased. Patient cannot really sit still with the pain. She states throughout the afternoon the pain is wrapping around to the left upper quadrant. She denies any problems with urination, darker than normal urine or dysuria. She has had previous kidney stone in the past and she believes it was on the left. She had to be stented in the past. She has had lithotripsy. Patient denies any recent traumas or injuries to the left flank. She has not done anything to irritate her back as far she can recall. No recent fevers, chills. She has had some nausea and vomiting today secondary to the pain. She did take a hydrocodone tablet approximately 2 hours prior to arrival it has not really seemed to help the pain at all. Last normal bowel movement was this morning. She states no issues with that. All other review of systems reviewed and negative except as stated above. Timing/Duration: 4-6 Hours Severity: Severe Pain/Injury Location: Abdomen, Back Allergies and Home Medications Allergies Coded Allergies: No Known Drug Allergies (Unverified , 05/04/16) Home Medications Alprazolam 1 Mg Tablet, 1 TAB PO PRN, (Reported) Atorvastatin 20 Mg Tablet, 10 MG PO DAILY, (Reported) Cefuroxime Axetil 500 Mg Tablet, 500 MG PO BID Prescribed by: HECTOR DARLING on 12/26/19 1128 Cholecalciferol (Vitamin D3) 50,000 Unit Capsule, 50,000 UNIT PO WEEKLY, (Reported) Citalopram Hydrobromide 20 Mg Tablet, 20 MG PO DAILY, (Reported) Fluconazole 150 Mg Tablet, 150 MG PO ONCE PRN for yeast infection Prescribed by: HECTOR DARLING on 12/26/19 1128 Gabapentin 400 Mg Capsule, 800 MG PO TID, (Reported) Hydrocodone Bit/Acetaminophen 1 Each Tablet, 1 EACH PO Q8H PRN for PAIN, (Reported) Hydrocodone/Acetaminophen 1 Each Tablet, 1 EACH PO EVERY 4-6HRS PRN for PAIN Prescribed by: BROOKLYN BYRD on 05/05/16 1146 Meloxicam 15 Mg Tablet, 15 MG PO DAILY, (Reported) Prednisone 20 Mg Tab, 40 MG PO DAILY Prescribed by: HECTOR DARLING on 12/26/19 1128 Sulfamethoxazole/Trimethoprim 1 Each Tablet, 1 EACH PO BID Prescribed by: EMILIANA SYLVESTER on 08/29/16 1909 Tizanidine HCl 4 Mg Capsule, 4 MG PO TID PRN for MUSCLE CRAMPS, (Reported) Zolpidem Tartrate 10 Mg Tablet, 10 MG PO HS, (Reported) Patient Home Medication List Home Medication List Reviewed: Yes Review of Systems Constitutional: see HPI EENTM: no symptoms reported Respiratory: no symptoms reported Cardiovascular: no symptoms reported Gastrointestinal: abdominal pain (LUQ), nausea, vomiting Genitourinary: no symptoms reported Musculoskeletal: back pain (Left flank) Skin: no symptoms reported All Other Systems Reviewed Negative Unless Noted: Yes Past Nrgdnxg-Fwzkko-Dkrnxm Hx Patient Social History Type Used: Cigarettes Recent Hopitalizations: No Immunizations Up To Date Date of Pneumonia Vaccine: Dec 13, 2012 Date of Influenza Vaccine: Dec 13, 2013 Seasonal Allergies Seasonal Allergies: No Past Medical History Surgeries: Yes (back, neck, lithotrypsy, KNEE SURGERY, R TKR, D&C) Appendectomy, Orthopedic, Tonsillectomy Respiratory: No Cardiac: Yes High Cholesterol Neurological: No Reproductive Disorders: No [employer] History: Menopausal Sexually Transmitted Disease: No HIV/AIDS: No Kidney Stones Gastrointestinal: Yes Gastroesophageal Reflux Musculoskeletal: Yes (CHRONIC GENERALIZED PAIN, AND LEFT BACK SPASMS) Degenerate Disk Disease, Arthritis, Chronic Back Pain Endocrine: No Cancer: Yes Skin, Melanoma Psychosocial: Yes Sleep Difficulties, Anxiety, Depression Integumentary: No Blood Disorders: No Adverse Reaction/Blood Tranf: No (HAS HAD BLOOD WITH NO REACTION) Family Medical History No Pertinent Family Hx Physical Exam Vital Signs Vital Signs - First Documented 08/21/20 14:44 Temp 35.7 Pulse 75 Resp 18 B/P (MAP) 155/99 (117) Pulse Ox 97 O2 Delivery Room Air Capillary Refill : Height, Weight, BMI Height: 5'8.00" Weight: 200lbs. 0.0oz. 90.793677hd; 28.37 BMI Method:Stated General Appearance: WD/WN, Moderate Distress HEENT: PERRL/EOMI Neck: Normal Inspection Cardiovascular: Regular Rate, Rhythm, Tachycardia Respiratory: Lungs Clear, Normal Breath Sounds, No Accessory Muscle Use, No Respiratory Distress Gastrointestinal: Normal Bowel Sounds, Non Tender, Soft Back: CVA Tenderness (L) Extremity: Normal Capillary Refill, Normal Inspection, Normal Range of Motion, Non Tender, No Calf Tenderness Neurologic/Psychiatric: Alert, Oriented x3, No Motor/Sensory Deficits, Normal Mood/Affect, Other (Anxious and tearful secondary to pain) Skin: Normal Color, Warm/Dry Progress/Results/Core Measures Results/Orders Lab Results Laboratory Tests Test 08/21/20 15:15 08/21/20 16:05 Range/Units White Blood Count 8.6 4.3-11.0 10^3/uL Red Blood Count 4.57 3.80-5.11 10^6/uL Hemoglobin 13.8 11.5-16.0 g/dL Hematocrit 42 35-52 % Mean Corpuscular Volume 91 80-99 fL Mean Corpuscular Hemoglobin 30 25-34 pg Mean Corpuscular Hemoglobin Concent 33 32-36 g/dL Red Cell Distribution Width 12.7 10.0-14.5 % Platelet Count 220 130-400 10^3/uL Mean Platelet Volume 9.8 9.0-12.2 fL Immature Granulocyte % (Auto) 0 % Neutrophils (%) (Auto) 59 42-75 % Lymphocytes (%) (Auto) 32 12-44 % Monocytes (%) (Auto) 7 0-12 % Eosinophils (%) (Auto) 3 0-10 % Basophils (%) (Auto) 0 0-10 % Neutrophils # (Auto) 5.0 1.8-7.8 X 10^3 Lymphocytes # (Auto) 2.7 1.0-4.0 X 10^3 Monocytes # (Auto) 0.6 0.0-1.0 X 10^3 Eosinophils # (Auto) 0.2 0.0-0.3 10^3/uL Basophils # (Auto) 0.0 0.0-0.1 10^3/uL Immature Granulocyte # (Auto) 0.0 0.0-0.1 10^3/uL Sodium Level 139 135-145 MMOL/L Potassium Level 4.4 3.6-5.0 MMOL/L Chloride Level 105 98-107 MMOL/L Carbon Dioxide Level 20 L 21-32 MMOL/L Anion Gap 14 5-14 MMOL/L Blood Urea Nitrogen 12 7-18 MG/DL Creatinine 1.07 0.60-1.30 MG/DL Estimat Glomerular Filtration Rate 52 BUN/Creatinine Ratio 11 Glucose Level 125 H 70-105 MG/DL Calcium Level 9.6 8.5-10.1 MG/DL Urine Color YELLOW Urine Clarity CLEAR Urine pH 6.0 5-9 Urine Specific Lawrence >=1.030 1.016-1.022 Urine Protein NEGATIVE NEGATIVE Urine Glucose (UA) NEGATIVE NEGATIVE Urine Ketones NEGATIVE NEGATIVE Urine Nitrite NEGATIVE NEGATIVE Urine Bilirubin NEGATIVE NEGATIVE Urine Urobilinogen 0.2 < = 1.0 MG/DL Urine Leukocyte Esterase TRACE H NEGATIVE Urine RBC (Auto) NEGATIVE NEGATIVE Urine RBC NONE /HPF Urine WBC 25-50 H /HPF Urine Squamous Epithelial Cells 5-10 /HPF Urine Crystals NONE /LPF Urine Bacteria TRACE /HPF Urine Casts NONE /LPF Urine Mucus NEGATIVE /LPF Urine Culture Indicated YES My Orders Orders - EMMY COX MD Ed Iv/Invasive Line Start (08/21/20 14:58) Basic Metabolic Panel (08/21/20 14:58) Cbc With Automated Diff (08/21/20 14:58) Abdomen/Kub 1view (08/21/20 14:58) Ua Culture If Indicated (08/21/20 14:58) Ketorolac Injection (Toradol Injection) (08/21/20 15:00) Fentanyl Inj (Sublimaze Injection) (08/21/20 15:00) Ondansetron Injection (Zofran Injectio (08/21/20 15:00) Ns Iv 1000 Ml (Sodium Chloride 0.9%) (08/21/20 16:00) Morphine Injection (Morphine Injection (08/21/20 16:03) Ct Abdomen/Pelvis Wo (08/21/20 16:03) Urine Culture (08/21/20 16:05) Morphine Injection (Morphine Injection (08/21/20 16:35) Orphenadrine Inj (Ed Only) (Norflex Inje (08/21/20 17:00) Medications Given in ED Current Medications Medications Dose Ordered Sig/Ksenia Route Start Time Stop Time Status Last Admin Dose Admin Fentanyl Citrate 50 mcg ONCE ONCE IVP 08/21/20 15:00 08/21/20 15:01 DC 08/21/20 15:19 50 MCG Ketorolac Tromethamine 15 mg ONCE ONCE IVP 08/21/20 15:00 08/21/20 15:01 DC 08/21/20 15:21 15 MG Ondansetron HCl 4 mg ONCE ONCE IVP 08/21/20 15:00 08/21/20 15:01 DC 08/21/20 15:21 4 MG Orphenadrine Citrate 60 mg ONCE ONCE IV 08/21/20 17:00 08/21/20 17:01 DC 08/21/20 17:05 60 MG Vital Signs/I&O 08/21/20 14:44 Temp 35.7 Pulse 75 Resp 18 B/P (MAP) 155/99 (117) Pulse Ox 97 O2 Delivery Room Air Progress Progress Note : Time: 16:03 Progress Note Patient is only mildly improved. Obtain a urine specimen now. Will order some morphine and a CAT scan to further evaluate for stone I did not see anything on the KUB. 1722 Patient still with a significant amount of pain despite a total of 10 mg of morphine and 60 mg of Norflex IV. We will place a lidocaine patch over her left flank where she is having the most pain and give her a milligram of Dilaudid before discharge. Patient has no intra-abdominal pathology on CT.. She has no obvious significant skeletal abnormalities. No signs of sepsis. No signs of urinary tract infection no kidney stone on the left. Nothing in the lung bases. I have ruled out at this point all emergent pathology. She has no overlying rashes to the skin on that side. No crepitance in the skin. Patient will be treated with a lidocaine patches and some Dilaudid. She will continue to take her hydrocodone at home. I am going to give her some muscle relaxers for home, Valium 2 mg to take every 6 hours as needed. I have cautioned her on the use of Valium and hydrocodone. She verbalized understanding. All questions are sought and answered. Patient is stable for discharge. Diagnostic Imaging Diagonstic Imaging: Xray Plain Films/CT/US/NM/MRI: abdomen Comments [facility]. [place], [place] NAME: VEREAN KAPADIA [facility] REC#: [id number] PT STATUS: REG ER : 1955 PHYSICIAN: EMMY COX MD ADMIT DATE: 08/21/20/ER Draft Date of Exam:08/21/20 ABDOMEN/KUB 1VIEW EXAMINATION: Supine abdomen at 3:44 PM. INDICATION: Left flank pain. FINDINGS: The prior CT abdomen/pelvis exam of 04/14/2019 noted a nonobstructive calculus within the inferior pole of the right kidney. That calculus is again identified on this study. The calculus measures approximately 5.8 mm on this exam although, on the CT exam, it measured approximately 17.5 mm in length. The phlebolith low in the pelvis on the left seen previously is also again evident and no different. There are no other pathological calcifications evident. There is gas in both large and small bowel in a nonspecific fashion. There is no sign of a bowel obstruction. There is no mass or organomegaly identified. The osseous structures are unremarkable for an acute abnormality. As noted on the prior exam, there has been a prior posterior fusion of L4 and L5. Also, there is now a 10 x 15 mm metallic density overlying the mid body of T11. This finding was not present on the prior exam. This could be extraneous to the patient. If further evaluation is desired, then a lateral view of the abdomen would be recommended. IMPRESSION: 1. There is a nonobstructive calculus overlying the inferior pole of the right kidney. There is no sign of a calculus along the expected paths of the ureters; however, if there is clinical concern regarding obstruction of either collecting system by a calculus, then CT would be recommended. 2. There is no acute abnormality of the abdomen or pelvis noted. 3. The metallic density overlying T11 is of uncertain etiology. Considerations and recommendations as above. Dictated on workstation # [id number] Dict: 08/21/20 1544 Trans: 08/21/20 1602 [id number] Interpreted by: ENMANUEL MTZ MD Electronically signed by: [facility]. [place], [place] NAME: VERENA KAPADIA [facility] REC#: [id number] PT STATUS: REG ER : 1955 PHYSICIAN: EMMY COX MD ADMIT DATE: 08/21/20/ER Draft Date of Exam:08/21/20 CT ABDOMEN/PELVIS WO EXAMINATION: CT abdomen and pelvis without contrast. TECHNIQUE: Multiple contiguous axial images were obtained through the abdomen and pelvis without the use of intravenous contrast. All CT scans use one or more of the following dose optimizing techniques: automated exposure control, MA and/or KvP adjustment based on patient size and exam type or iterative reconstruction. HISTORY: Left flank pain. COMPARISON: CT abdomen and pelvis 04/14/2019. FINDINGS: Lung bases: Bibasilar dependent atelectasis. Solid organs: The liver is normal. The gallbladder is normal. There is no biliary ductal dilation. Pancreas is normal. Spleen is normal. There is a 1.5 cm right adrenal nodule with Hounsfield units of 0 compatible with an adrenal adenoma. Left adrenal gland is unremarkable. There is a 0.6 cm nonobstructing right renal calculus. There is no hydronephrosis. Bowel: The stomach and small bowel are normal without obstruction. There is scattered colonic diverticulosis. There is mild wall thickening within the sigmoid colon in an area of multiple diverticuli and mild inflammatory stranding. There are no findings of acute appendicitis. Peritoneum: There is no intraperitoneal free fluid or free air. No suspicious lymphadenopathy. Vasculature: Calcification of the aorta without aneurysm. Musculoskeletal: Multilevel surgical degenerative changes of the spine without suspicious osseous lesion or compression fracture. Pelvis: The uterus and adnexa are normal. The urinary bladder is normal. IMPRESSION: 1. Diverticulosis with wall thickening and mild inflammatory stranding of the sigmoid colon which could be seen with sigmoid diverticulitis or infectious inflammatory colitis in the appropriate clinical setting. No abscess or free air. 2. Nonobstructing 0.6 cm right renal calculus. No hydronephrosis. Dictated on workstation # [id number] Dict: 08/21/20 1658 Trans: 08/21/20 1704 [facility] [id number] Interpreted by: KATJA RAMIREZ DO Electronically signed by: Departure Impression Primary Impression: Left flank pain Disposition: HOME, SELF-CARE Condition: Stable Departure-Patient Inst. Decision time for Depature: 17:25 Referrals: MILE ARIAS DO (PCP/Family) Primary Care Physician Patient Instructions: Upper Back Pain Add. Discharge Instructions: Continue to take your hydrocodone at home as needed for pain. Given you a prescription for Valium to take for muscle relaxation. Take this every 6 hours as needed. Use [id number] lidocaine patches to the area over the next 2 to 3 days. You can also alternate heat and ice. Return to the emergency room for reevaluation if you have fever, vomiting, worsening pain or any other emergent concerning symptoms develop. Please follow-up with your primary care physician. Scripts Diazepam (Diazepam) 5 Mg Tablet 5 MG PO Q8H PRN for muscle spasm and pain, #15 TAB Prov: EMMY COX MD 08/21/20 EMMY COX MD Aug 21, 2020 15:02
[2020-08-21 15:31] LABS: BASOPHILS % (AUTO) 0 % (0-10); EOSINOPHILS # (AUTO) 0.2 10^3/uL (0.0-0.3); EOSINOPHILS % (AUTO) 3 % (0-10); HEMATOCRIT 42 % (35-52); HEMOGLOBIN 13.8 g/dL (11.5-16.0); LYMPHOCYTES # (AUTO) 2.7 X 10^3 (1.0-4.0); LYMPHOCYTES % (AUTO) 32 % (12-44); MEAN CORPUSCULAR HEMOGLOBIN 30 pg (25-34); MEAN CORPUSCULAR HGB CONC 33 g/dL (32-36); MEAN CORPUSCULAR VOLUME 91 fL (80-99); MEAN PLATELET VOLUME 9.8 fL (9.0-12.2); MONOCYTES # (AUTO) 0.6 X 10^3 (0.0-1.0); MONOCYTES % (AUTO) 7 % (0-12); NEUTROPHILS % (AUTO) 59 % (42-75); PLATELET COUNT 220 10^3/uL (130-400); WHITE BLOOD COUNT 8.6 10^3/uL (4.3-11.0)
[2020-08-21 15:45] LABS: POTASSIUM 4.4 MMOL/L (3.6-5.0)
[2020-08-21 15:46] LABS: CALCIUM 9.6 MG/DL (8.5-10.1)
[2020-08-21 15:50] LABS: CREATININE SERUM 1.07 MG/DL (0.60-1.30)
[2020-08-21] MEDS ORDERED: NS IV 1000 ML 1,000 ML IV SCH (16:00)
--- NOTE | 2020-08-21 16:02 | Diagnostic Imaging Report ---
EXAMINATION: Supine abdomen at 3:44 PM. INDICATION: Left flank pain. FINDINGS: The prior CT abdomen/pelvis exam of 04/14/2019 noted a nonobstructive calculus within the inferior pole of the right kidney. That calculus is again identified on this study. The calculus measures approximately 5.8 mm on this exam although, on the CT exam, it measured approximately 17.5 mm in length. The phlebolith low in the pelvis on the left seen previously is also again evident and no different. There are no other pathological calcifications evident. There is gas in both large and small bowel in a nonspecific fashion. There is no sign of a bowel obstruction. There is no mass or organomegaly identified. The osseous structures are unremarkable for an acute abnormality. As noted on the prior exam, there has been a prior posterior fusion of L4 and L5. Also, there is now a 10 x 15 mm metallic density overlying the mid body of T11. This finding was not present on the prior exam. This could be extraneous to the patient. If further evaluation is desired, then a lateral view of the abdomen would be recommended. IMPRESSION: 1. There is a nonobstructive calculus overlying the inferior pole of the right kidney. There is no sign of a calculus along the expected paths of the ureters; however, if there is clinical concern regarding obstruction of either collecting system by a calculus, then CT would be recommended. 2. There is no acute abnormality of the abdomen or pelvis noted. 3. The metallic density overlying T11 is of uncertain etiology. Considerations and recommendations as above. Dictated by: Dictated on workstation # [id number]
[2020-08-21] MEDS ORDERED: morphine INJ 10 MG/ML 1ML (SYR OR VIAL) IVP STA ×2 (16:03→16:35)
[2020-08-21 16:13] LABS: BILIRUBIN,URINE NEGATIVE (NEGATIVE); CLARITY,URINE CLEAR; COLOR,URINE YELLOW; GLUCOSE, URINE (UA) NEGATIVE (NEGATIVE); KETONES,URINE NEGATIVE (NEGATIVE); LEUKOCYTE ESTERASE ,URINE TRACE (NEGATIVE); NITRITE,URINE NEGATIVE (NEGATIVE); PROTEIN,URINE NEGATIVE (NEGATIVE)
[2020-08-21 16:19] LABS: BACTERIA,URINE TRACE /HPF; WBC,URINE 25-50 /HPF
[2020-08-21] MEDS ORDERED: ORPHENADRINE 60 MG/2 ML (NORFLEX) AMP (ED ONLY) IV ONE (17:00)
--- NOTE | 2020-08-21 17:04 | Diagnostic Imaging Report ---
EXAMINATION: CT abdomen and pelvis without contrast. TECHNIQUE: Multiple contiguous axial images were obtained through the abdomen and pelvis without the use of intravenous contrast. All CT scans use one or more of the following dose optimizing techniques: automated exposure control, MA and/or KvP adjustment based on patient size and exam type or iterative reconstruction. HISTORY: Left flank pain. COMPARISON: CT abdomen and pelvis 04/14/2019. FINDINGS: Lung bases: Bibasilar dependent atelectasis. Solid organs: The liver is normal. The gallbladder is normal. There is no biliary ductal dilation. Pancreas is normal. Spleen is normal. There is a 1.5 cm right adrenal nodule with Hounsfield units of 0 compatible with an adrenal adenoma. Left adrenal gland is unremarkable. There is a 0.6 cm nonobstructing right renal calculus. There is no hydronephrosis. Bowel: The stomach and small bowel are normal without obstruction. There is scattered colonic diverticulosis. There is mild wall thickening within the sigmoid colon in an area of multiple diverticuli and mild inflammatory stranding. There are no findings of acute appendicitis. Peritoneum: There is no intraperitoneal free fluid or free air. No suspicious lymphadenopathy. Vasculature: Calcification of the aorta without aneurysm. Musculoskeletal: Multilevel surgical degenerative changes of the spine without suspicious osseous lesion or compression fracture. Pelvis: The uterus and adnexa are normal. The urinary bladder is normal. IMPRESSION: 1. Diverticulosis with wall thickening and mild inflammatory stranding of the sigmoid colon which could be seen with sigmoid diverticulitis or infectious inflammatory colitis in the appropriate clinical setting. No abscess or free air. 2. Nonobstructing 0.6 cm right renal calculus. No hydronephrosis. Dictated by: Dictated on workstation # [id number]
[2020-08-21] MEDS ORDERED: DIAZ5TAB49 PO (17:28)
[2020-08-21] MEDS ORDERED: HYDROmorphone 2 MG/ML VIAL (DILAUDID) IV ONE (17:30)
[2020-08-21 17:51] VITALS: BP 120/85
[2020-08-22] MEDS ORDERED: LIDOCAINE 4% (SALONPAS) PATCH TOP SCH (09:00)
== END 2020-08-21 17:52 | disposition home or self-care (01) ==
LOC: EDUNIT# 14:39 → ER 14:42
DX: R10.9 Unspecified abdominal pain (principal); E78.00 Pure hypercholesterolemia, unspecified; F41.9 Anxiety disorder, unspecified; F32.9 Major depressive disorder, single episode, unspecified; G89.29 Other chronic pain; M54.9 Dorsalgia, unspecified; Z79.52 Long term (current) use of systemic steroids; Z79.899 Other long term (current) drug therapy; Z79.891 Long term (current) use of opiate analgesic
CPT/HCPCS: 36415; 74018; 74176; 80048; 81000; 85025; 87088

== ENCOUNTER → 2020-08-23 | Outpatient (CLI) | payer MEDICARE, OTHER ==
[~2020-08-23] MED LIST changes: +DIAZ5TAB49 PO
--- NOTE | 2020-08-23 15:36 | Diagnostic Imaging Report ---
INDICATION: Intercostal neuralgia. TECHNIQUE: Thee views of left ribs, 2:36 PM. CORRELATION STUDY: None. FINDINGS: The visualized left ribs are unremarkable. There is no acute bony abnormality. No bony destructive change. Underlying left lung parenchyma is unremarkable without evidence for infiltrate, effusion or pneumothorax. Visualized portion of the left humerus appearing unremarkable. Probable small sclerotic foci of the humeral head. C6-T1 spinal fusion plate present. There does appear to be mild degenerative changes of the thoracic spine. There is either mild rotation or perhaps minimal leftward curvature at the thoracolumbar junction. Partial visualization of the lumbar spinal fixation hardware. IMPRESSION: Unremarkable examination of the left ribs. Dictated by: Dictated on workstation # [id number]
== END ==
LOC: RAD 14:05
PROVIDERS: ATTEND Internal Medicine
DX: G58.8 Other specified mononeuropathies (principal)
CPT/HCPCS: 71100

== ENCOUNTER → 2020-11-27 | Outpatient (CLI) | payer MEDICARE, OTHER ==
[~2020-11-27] MED LIST changes: +GADOBUTROL 10 MMOL/10 ML (GADAVIST) VIAL IV ONE; -SULF1TAB35 PO; +SULF1TAB38 PO
--- NOTE | 2020-11-27 13:08 | Diagnostic Imaging Report ---
Exam: MRI left foot without and with intravenous contrast. Date: November 27, 2020. Indication: 65-year-old female, left foot pain. No known injury. Comparison: None. Technique: Multiple pre and postcontrast MRI sequences of the foot were obtained. Findings: The visualized portions of the posterior flexor tendons are intact. The visualized portions of the peroneal tendons are intact. The visualized portions of the anterior extensor tendons are intact. The visualized portions of the plantar fascia are intact. The Lisfranc ligament proper is intact. There is advanced arthritis at the articulation of the middle cuneiform at the second metatarsal base. There are degenerative related subchondral cystic changes and associated marrow edema. There is also mild to moderate arthritis at the articulation of the lateral cuneiform with the third metatarsal base. There is no identified joint effusion. There is no identified bone fragmentation or bone erosion. There is mild osteoarthritis at the first metatarsophalangeal joint. There is fairly prominent edema-like signal in the proximal half of the second metatarsal and adjacent medial cuneiform. There is also edema-like signal in the navicular and proximal aspect of the third metatarsal base. There is no identified fracture line. There is arthritis at the articulation of the navicular with the medial and middle cuneiforms. There is no identified focal fluid collection. There is no identified enhancing soft tissue mass. There is preservation of normal fat signal in the imaged portions of the sinus tarsi. Impression: 1. 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 There is associated degenerative related signal change. Although these articulations can be involved with crystalline arthropathies or Charcot arthropathy, there is no joint effusion, bone fragmentation, or bone erosion to additionally favor these considerations. 2. The extent of edema-like signal in the second metatarsal is prominent and does extend to the level of the mid diaphysis. This also could reflect stress reaction. There is no evidence of a fracture. 3. Intact imaged tendons and intact Lisfranc ligament proper. Dictated by: Dictated on workstation # [id number]
== END ==
LOC: RAD 10:37
PROVIDERS: ATTEND Podiatrist
DX: M19.072 Primary osteoarthritis, left ankle and foot (principal)
CPT/HCPCS: 73720

== ENCOUNTER → 2021-01-22 | Outpatient (CLI) | payer MEDICARE, OTHER ==
[~2021-01-22] MED LIST changes: -GADOBUTROL 10 MMOL/10 ML (GADAVIST) VIAL IV ONE
--- NOTE | 2021-01-23 09:51 | Diagnostic Imaging Report ---
INDICATION: Routine screening. COMPARISON is made with prior mammograms from 04/20/2019 and 12/27/2017. 2-D and 3-D bilateral screening mammography was performed with CAD. Scattered fibroglandular densities are identified bilaterally. The parenchymal pattern is stable. No mass or malignant-appearing microcalcifications are seen. Axillae are unremarkable. IMPRESSION: BI-RADS Category 1 No mammographic features suspicious for malignancy are identified. ACR BI-RADS Category 1: Negative. Result letter will be mailed to the patient. Note: At least 10% of breast cancer is not imaged by mammography. Dictated by: Dictated on workstation # [id number]
== END ==
LOC: RAD 14:45
PROVIDERS: ATTEND Internal Medicine
DX: Z12.31 Encounter for screening mammogram for malignant neoplasm of breast (principal)
CPT/HCPCS: 77063; 77067

== ENCOUNTER → 2022-05-26 | Outpatient (CLI) | payer MEDICARE, OTHER ==
--- NOTE | 2022-05-26 15:08 | Diagnostic Imaging Report ---
INDICATION: Routine screening. COMPARISON: 01/22/2021 and 04/20/2019. TECHNIQUE: 2D and 3D bilateral screening mammography was performed with CAD. FINDINGS: Scattered fibroglandular densities are identified bilaterally. No mass or malignant-appearing microcalcifications are identified. The axillae are unremarkable. IMPRESSION: No mammographic features suspicious for malignancy are identified. ACR BI-RADS Category 1: Negative. Result letter will be mailed to the patient. Note: At least 10% of breast cancer is not imaged by mammography. Dictated by: Dictated on workstation # [id number]
== END ==
LOC: RAD 12:32
PROVIDERS: ATTEND Internal Medicine
DX: Z12.31 Encounter for screening mammogram for malignant neoplasm of breast (principal)
CPT/HCPCS: 77063; 77067

== ENCOUNTER → 2022-07-28 | Outpatient (CLI) | payer MEDICARE, OTHER ==
--- NOTE | 2022-07-28 11:38 | Diagnostic Imaging Report ---
INDICATION: Postmenopausal state. COMPARISON: 11/11/2012. FINDINGS: AP Spine L1-L4: [BMD (g/cm2): na] [T-Score: na] [Z-Score: na] [BMD Previous: na] [BMD % Change: na] LT Hip Neck: [BMD (g/cm2): 1.129] [T-Score: 0.7] [Z-Score: 1.8] LT Hip Total: [BMD (g/cm2):1.167] [T-Score:1.3] [Z-Score: 2.1] [BMD Previous: 1.220] [BMD % Change: -4.3*] RT Hip Neck: [BMD (g/cm2):1.123] [T-Score:0.6] [Z-Score:1.7] RT Hip Total: [BMD (g/cm2):1.162] [T-score:1.2] [Z-Score:2.1] [BMD Previous:1.204] [BMD % Change:-3.5*] *Indicates significant change from prior examination based on 95% confidence level. World Health Organization criteria for BMD interpretation classify patients as Normal (T-score at or above -1.0), Osteopenic (T-score between -1.0 and -2.5) or Osteoporotic (T-score at or below -2.5). LIMITATIONS AND MODIFICATION: The lumbar spine was not evaluated secondary to postsurgical changes. IMPRESSION: 1. Normal bone mineral density. 2. Bone mineral density has decreased by a statistically significant amount, as detailed above. 3. See below National Osteoporosis Foundation guidelines on when to potentially initiate pharmacologic therapy. Based on the National Osteoporosis Foundation Guidelines, pharmacologic treatment should be initiated in any of the following, unless clinical conditions suggest otherwise: * Any patient with prior fragility fracture of the hip or vertebrae. A spine fracture indicates 5X risk for subsequent spine fracture and 2X risk for subsequent hip fracture. * Osteoporosis (T-score <-2.5). * Postmenopausal women and men age 50 and older with low bone mass/osteopenia (T-score between -1.0 and -2.5) by DXA and 10-year major osteoporotic fracture greater than 20% or a 10-year probability of hip fracture greater than 3%. These fracture risks are supplied above in the FRAX score, if applicable. * Clinician judgement and/or patient preferences may indicate treatment for people with 10-year fracture probabilities above or below these levels. Dictated by: Dictated on workstation # [id number]
== END ==
LOC: RAD 10:08
PROVIDERS: ATTEND Internal Medicine
DX: R29.890 Loss of height (principal); Z78.0 Asymptomatic menopausal state
CPT/HCPCS: 77080

== ENCOUNTER → 2023-01-26 | Outpatient (CLI) | payer MEDICARE, OTHER ==
--- NOTE | 2023-01-26 16:20 | Diagnostic Imaging Report ---
PROCEDURE: MRI lumbar spine. TECHNIQUE: Multiplanar, multisequence MRI of the lumbar spine was performed without contrast. INDICATION: Chronic low back pain. Lumbar spine fusion. COMPARISON: Lumbar spine radiographs 12/16/2017. FINDINGS: There are 5 lumbar-type vertebral bodies for the purposes of this report. Minimal anterolisthesis of L3 on L4. Vertebral body heights are preserved. Modic type I degenerative endplate changes at L3-L4. Posterior instrumentation at L4-L5. No abnormal signal in the conus which terminates at L1-L2. Normal morphology of the cauda equina. The visualized pelvis and paravertebral soft tissues are unremarkable. L1-L2: Annular disc bulging and facet arthropathy result in severe left lateral recess narrowing. Mild spinal canal narrowing. Moderate to severe bilateral neuroforaminal narrowing. L2-L3: Annular disc bulging, ligamentous hypertrophy, and facet arthropathy result in severe spinal canal stenosis. Severe bilateral neuroforaminal narrowing. L3-L4: Broad-based disc bulging and facet arthropathy result in severe spinal canal stenosis. Severe left and moderate right neuroforaminal narrowing. L4-L5: No substantial spinal canal or lateral recess narrowing. Moderate to severe bilateral neuroforaminal narrowing. L5-S1: Advanced facet arthropathy. Mild spinal canal and bilateral lateral recess narrowing. Severe right and mild left neuroforaminal narrowing. IMPRESSION: 1. Posterior instrumentation at L4-L5. 2. Spondylotic changes result in severe spinal canal stenosis at L2-L3 and L3-L4. 3. Multilevel high-grade lateral recess and neuroforaminal narrowing as detailed above. 4. No acute osseous findings. Modic type I degenerative endplate changes at L3-L4. Dictated by: Dictated on workstation # [id number]
== END ==
LOC: RAD 14:05
PROVIDERS: ATTEND Neurological Surgery
DX: M48.062 Spinal stenosis, lumbar region with neurogenic claudication (principal); M47.816 Spondylosis without myelopathy or radiculopathy, lumbar region; Z98.1 Arthrodesis status
CPT/HCPCS: 72148